=== PATIENT | female | born 1955 | race African-American/Black ===

== ENCOUNTER 2022-02-02 09:39 | Inpatient (IN) | payer MEDICAID ==
[~2022-02-02] VITALS: Ht 167.6 cm; Wt 76.2 kg
[2022-02-02 11:49] LABS: BASOPHILS % 0.3 % (0.0-2.0); HEMATOCRIT. 28.4 % (36.0-48.0); HEMOGLOBIN. 9.3 g/dL (12.0-16.0); LYMPHOCYTES % 22.4 % (20.0-50.0); MEAN CORPUSCULAR HEMOGLOBIN 28.6 pg (28.0-32.0); MEAN CORPUSCULAR VOLUME 87.3 fL (81.0-99.0); MEAN PLATELET VOLUME 8.1 fl (7.4-10.4); MONOCYTES % 4.4 % (2.0-8.0); NEUTROPHILS % 70.9 % (40.0-76.0); PLATELET 229 x1000/uL (130-400); RED BLOOD CELL COUNT 3.26 mill/uL (4.2-5.4); RED CELL DISTRIBUTION WIDTH 13.6 % (11.6-14.6)
[2022-02-02] MEDS ORDERED: MORPHINE SULFATE 4 MG/ML CPJ (NOT FOR IM USE) IV ONE (12:00)
[2022-02-02 12:06] LABS: CHLORIDE 107 mEq/L (98-107)
[2022-02-02] MEDS ORDERED: DIPHENHYDRAMINE 50MG/ML VIAL IV ONE (12:30)
[2022-02-02] MEDS ORDERED: INSULIN REGULAR (HUMULIN R) 300UNITS/3ML VIAL IV ONE (12:30)
[2022-02-02] MEDS ORDERED: SODIUM BICARBONATE 8.4% 1 MEQ/ML 50ML SYR IV ONE (12:30)
[2022-02-02] MEDS ORDERED: CALCIUM CHLORIDE 1GM/10ML SYR IV ONE (12:30)
[2022-02-02] MEDS ORDERED: ALBUTEROL (0.083%) 2.5MG/3ML NEB HHN ONE (12:30)
[2022-02-02] MEDS ORDERED: DEXTROSE 50% WATER 50ML SYRINGE IV ONE (12:30)
[2022-02-02] MEDS ORDERED: SODIUM CHLORIDE 0.9% 500 ML IV ONE (12:45)
[2022-02-02 14:00] VITALS: BP 104/51
[2022-02-02 14:30] VITALS: BP 104/51
[2022-02-02] MEDS ORDERED: GABA-529 PO (14:40)
[2022-02-02] MEDS ORDERED: INSU100I13 SQ (14:40)
[2022-02-02] MEDS ORDERED: INSU100I19 SQ (14:40)
[2022-02-02] MEDS ORDERED: DULO30CA52 PO (14:40)
[2022-02-02] MEDS ORDERED: LISI20TA31 PO (14:40)
[2022-02-02] MEDS ORDERED: HYDROCODONE/ACETAMINOPHEN 5/325MG TABLET PO PRN (15:00)
[2022-02-02] MEDS ORDERED: CLONIDINE 0.1MG TABLET PO PRN (15:00)
[2022-02-02] MEDS ORDERED: DEXTROSE 50% WATER 50ML SYRINGE IV PRN ×2 (15:00)
[2022-02-02] MEDS ORDERED: ENOXAPARIN 40MG/0.4ML SYR SUBCUT SCH (15:00)
[2022-02-02] MEDS ORDERED: ACETAMINOPHEN 325MG TABLET PO PRN (15:00)
[2022-02-02] MEDS ORDERED: MAGNESIUM/ALUMINUM HYDROXIDE/SIMETHICONE 30ML UDC PO PRN (15:00)
[2022-02-02] MEDS ORDERED: ONDANSETRON HCL 4MG/2ML INJ IV PRN (15:00)
[2022-02-02] MEDS ORDERED: ALBUTEROL (0.083%) 2.5MG/3ML NEB HHN NR (15:30)
[2022-02-02] MEDS ORDERED: NALOXONE HCL 0.4MG/ML VIAL IV PRN (15:30)
[2022-02-02] MEDS ORDERED: SODIUM POLYSTYRENE SULFONATE 15 G/60 ML BOT PO NR (15:30)
[2022-02-02] MEDS: ENOXAPARIN 30MG/0.3ML SYR SUBCUT SCH (15:55)
[2022-02-02] MEDS: BLOOD SUGAR DIAGNOSTIC STRIP TEST SCH ×2 (15:55→21:00)
[2022-02-02 16:00] VITALS: BP 102/39
[2022-02-02] MEDS: INSULIN LISPRO 100 UNITS/ML SUBCUT SCH ×2 (17:12→22:36)
[2022-02-02] MEDS: GABAPENTIN 100MG CAPSULE PO SCH (17:12)
[2022-02-02 17:55] VITALS: BP 104/51
[2022-02-02 20:00] VITALS: BP 113/48
[2022-02-02 20:07] LABS: T4 FREE 0.96 ng/dL (0.76-1.46)
[2022-02-02] MEDS: INSULIN GLARGINE 100 UNITS/ML SUBCUT SCH (22:35)
[2022-02-02 23:05] LABS: HEPATITIS B SURFACE ANTIGEN NEGATIVE
[2022-02-03] VITALS: BP 104/36
[2022-02-03 04:00] VITALS: BP 99/41
[2022-02-03] MEDS: BLOOD SUGAR DIAGNOSTIC STRIP TEST SCH ×4 (05:42→20:44)
[2022-02-03] MEDS: OMEPRAZOLE 20MG CAPSULE EXTENDED RELEASE PO SCH (05:46)
[2022-02-03] MEDS: INSULIN LISPRO 100 UNITS/ML SUBCUT SCH ×4 (06:31→20:43)
[2022-02-03 06:40] LABS: BASOPHILS % 0.5 % (0.0-2.0); EOSINOPHILS % 2.4 % (0.0-5.0); HEMOGLOBIN. 8.8 g/dL (12.0-16.0); LYMPHOCYTES % 25.3 % (20.0-50.0); MEAN CORPUSCULAR HEMOGLOBIN 27.9 pg (28.0-32.0); MEAN PLATELET VOLUME 8.7 fl (7.4-10.4); MONOCYTES % 3.9 % (2.0-8.0); NEUTROPHILS % 67.9 % (40.0-76.0); PLATELET 239 x1000/uL (130-400); RED BLOOD CELL COUNT 3.14 mill/uL (4.2-5.4); RED CELL DISTRIBUTION WIDTH 13.7 % (11.6-14.6)
[2022-02-03 08:00] VITALS: BP 109/51
[2022-02-03] MEDS: GABAPENTIN 100MG CAPSULE PO SCH ×3 (08:55→17:00)
[2022-02-03] MEDS: DULOXETINE HCL 30MG DR CAPSULE PO SCH (08:55)
[2022-02-03 11:42] LABS: CHLORIDE 107 mEq/L (98-107)
[2022-02-03 12:00] VITALS: BP 155/63
[2022-02-03 12:53] LABS: HDL CHOLESTEROL 34 mg/dL (40-59); LDL CHOLESTEROL 168 mg/dL (5-100); PHOSPHORUS 4.4 mg/dL (2.5-4.9); T4 FREE 1.08 ng/dL (0.76-1.46)
[2022-02-03 16:00] VITALS: BP 155/75
[2022-02-03 16:18] LABS: CLARITY URINE TURBID (CLEAR); COLOR URINE YELLOW (YELLOW); KETONES URINE TRACE (NEGATIVE); LEUKOCYTE ESTERASE URINE 3+ (NEGATIVE); NITRITE URINE NEGATIVE (NEGATIVE); OCCULT BLOOD URINE 2+ (NEGATIVE); PROTEIN URINE 4+ (NEGATIVE); UROBILINOGEN URINE 0.2 E.U./dL (0.2-1.0)
[2022-02-03 16:42] LABS: *AMPHETAMINES SCREEN URINE NEGATIVE (NEGATIVE); *BARBITURATES SCREEN URINE NEGATIVE (NEGATIVE); *BENZODIAZEPINES SCREEN URINE NEGATIVE (NEGATIVE); *COCAINE SCREEN URINE NEGATIVE (NEGATIVE); CANNABINOID URINE SCREEN NEGATIVE (NEGATIVE); METHADONE URINE SCREEN NEGATIVE (NEGATIVE); OPIATES URINE SCREEN PRESUMTIVE POSITIVE (NEGATIVE); PHENCYCLIDINE URINE SCREEN NEGATIVE (NEGATIVE)
[2022-02-03] MEDS: ENOXAPARIN 30MG/0.3ML SYR SUBCUT SCH (17:00)
[2022-02-03 20:00] VITALS: BP 147/65
[2022-02-03] MEDS: INSULIN GLARGINE 100 UNITS/ML SUBCUT SCH (20:43)
[2022-02-04] VITALS: BP 149/65
[2022-02-04 04:00] VITALS: BP 151/62
[2022-02-04] MEDS: INSULIN LISPRO 100 UNITS/ML SUBCUT SCH ×2 (05:38→12:10)
[2022-02-04] MEDS: BLOOD SUGAR DIAGNOSTIC STRIP TEST SCH ×2 (05:38→11:54)
[2022-02-04] MEDS: OMEPRAZOLE 20MG CAPSULE EXTENDED RELEASE PO SCH (05:38)
[2022-02-04 06:26] LABS: BASOPHILS % 0.5 % (0.0-2.0); EOSINOPHILS % 4.4 % (0.0-5.0); HEMATOCRIT. 26.5 % (36.0-48.0); HEMOGLOBIN. 8.9 g/dL (12.0-16.0); LYMPHOCYTES % 30.4 % (20.0-50.0); MEAN CORPUSCULAR HEMOGLOBIN 28.8 pg (28.0-32.0); MEAN CORPUSCULAR VOLUME 85.5 fL (81.0-99.0); MEAN PLATELET VOLUME 8.2 fl (7.4-10.4); MONOCYTES % 4.9 % (2.0-8.0); NEUTROPHILS % 59.8 % (40.0-76.0); PLATELET 218 x1000/uL (130-400); RED CELL DISTRIBUTION WIDTH 13.4 % (11.6-14.6)
[2022-02-04 06:38] LABS: CHLORIDE 108 mEq/L (98-107)
[2022-02-04 06:53] LABS: PHOSPHORUS 4.5 mg/dL (2.5-4.9)
[2022-02-04 08:00] VITALS: BP_SYST 131; BP_SYST 150; BP_DIAS 61; BP_DIAS 67
[2022-02-04] MEDS ORDERED: SODIUM CHLORIDE 0.9% 1,000 ML IV SCH (08:30)
[2022-02-04] MEDS: DULOXETINE HCL 30MG DR CAPSULE PO SCH (08:58)
[2022-02-04] MEDS: GABAPENTIN 100MG CAPSULE PO SCH ×2 (08:58→14:10)
[2022-02-04] MEDS ORDERED: CEFTRIAXONE 1,000 MG in DEXTROSE 5% WATER 50 ML IV SCH (10:00)
[2022-02-04 12:00] VITALS: BP 150/61
[2022-02-04 12:46] LABS: CREATINE KINASE 168 IU/L (26-192)
[2022-02-04] MEDS ORDERED: LEVO250T74 MT (14:58)
[2022-02-04 16:00] VITALS: BP 152/65
[2022-02-04 16:42] VITALS: BP 154/65
[2022-02-04] MEDS ORDERED: EPOETIN ALFA-EPBX 4,000 UNIT/ML VIAL SUBCUT SCH (21:00)
== END 2022-02-04 17:30 | disposition home or self-care (01) | DRG 203 ==
LOC: ER 09:39 → 7EST 12:45 → EDBEDREQ 12:47 → EDBEDREQTM 12:47 → EDBEDREQ 12:48
PROVIDERS: ADMIT Family Medicine Adult Medicine; ATTEND Family Medicine Adult Medicine
DX: M94.0 Chondrocostal junction syndrome [Tietze] (principal); N17.0 Acute kidney failure with tubular necrosis; E44.1 Mild protein-calorie malnutrition; D63.1 Anemia in chronic kidney disease; I25.2 Old myocardial infarction; E11.22 Type 2 diabetes mellitus with diabetic chronic kidney disease; E87.5 Hyperkalemia; E78.00 Pure hypercholesterolemia, unspecified; I12.9 Hypertensive chronic kidney disease with stage 1 through stage 4 chronic kidney disease, or unspecified chronic kidney disease; N18.4 Chronic kidney disease, stage 4 (severe); N39.0 Urinary tract infection, site not specified; Z79.899 Other long term (current) drug therapy; Z82.49 Family history of ischemic heart disease and other diseases of the circulatory system; Z68.27 Body mass index [BMI] 27.0-27.9, adult; E11.65 Type 2 diabetes mellitus with hyperglycemia
CPT/HCPCS: 36415; 71045; 76770; 80048; 80053; 80061; 80076; 80305; 81003; 82550; 82570; 82962; 83036; 83735; 83880; 84100; 84132; 84156; 84439; 84443; 84481; 84484; 85025; 86038; 86160; 86705; 86709; 86803; 87077; 87186; 87340; 93005; 93306; 93970; 99285; J0696; J0885; J1200; J1650; J1815; J2270; J3490; J7030; J7060

== ENCOUNTER 2022-03-15 15:29 | Inpatient (IN) | payer MEDICAID ==
[~2022-03-15] VITALS: Ht 152.4 cm; Wt 80.8 kg
[~2022-03-15 15:29] MED LIST: DULO30CA52 PO; GABA-529 PO; INSU100I13 SQ; INSU100I19 SQ; LEVO250T74 MT; LISI20TA31 PO
[2022-03-15] MEDS ORDERED: SODIUM CHLORIDE 0.9% 1000ML BAG (SEPSIS BOLUS) IV ONE (17:00)
[2022-03-15] MEDS ORDERED: ACETAMINOPHEN 325MG TABLET PO ONE (17:00)
[2022-03-15 18:30] LABS: BASOPHILS % 0.2 % (0.0-2.0); EOSINOPHILS % 1.6 % (0.0-5.0); HEMATOCRIT. 27.9 % (36.0-48.0); HEMOGLOBIN. 9.2 g/dL (12.0-16.0); LYMPHOCYTES % 22.2 % (20.0-50.0); MEAN CORPUSCULAR HEMOGLOBIN 28.3 pg (28.0-32.0); MEAN CORPUSCULAR VOLUME 85.7 fL (81.0-99.0); MEAN PLATELET VOLUME 8.4 fl (7.4-10.4); MONOCYTES % 8.1 % (2.0-8.0); NEUTROPHILS % 67.9 % (40.0-76.0); PLATELET 174 x1000/uL (130-400); RED BLOOD CELL COUNT 3.26 mill/uL (4.2-5.4)
[2022-03-15 18:37] LABS: PARTIAL THROMBOPLASTIN TIME 30.2 sec (23.4-31.0); PROTHROMBIN TIME 10.9 sec (9.6-11.0)
[2022-03-15 18:41] LABS: CHLORIDE 109 mEq/L (98-107)
[2022-03-15] MEDS ORDERED: AZITHROMYCIN 500MG/250ML 250 ML IV ONE (19:15)
[2022-03-15] MEDS ORDERED: OSELTAMIVIR 75MG CAPSULE PO ONE (19:15)
[2022-03-15] MEDS ORDERED: CEFTRIAXONE 1 G PREMIX 50 ML IV ONE (19:15)
[2022-03-15 21:01] LABS: CLARITY URINE CLOUDY (CLEAR); COLOR URINE YELLOW (YELLOW); KETONES URINE NEGATIVE (NEGATIVE); LEUKOCYTE ESTERASE URINE 1+ (NEGATIVE); NITRITE URINE NEGATIVE (NEGATIVE); OCCULT BLOOD URINE 2+ (NEGATIVE); PH URINE 5.5 (4.5-8.0); PROTEIN URINE 4+ (NEGATIVE); SPECIFIC GRAVITY URINE 1.017 (1.005-1.030); UROBILINOGEN URINE 0.2 E.U./dL (0.2-1.0)
[2022-03-15] MEDS ORDERED: ACETAMINOPHEN 500MG TABLET PO NR (22:30)
[2022-03-15] MEDS ORDERED: AZITHROMYCIN 500MG/250ML 250 ML IV NR (22:30)
[2022-03-16] MEDS ORDERED: LEVOFLOXACIN 750MG PREMIX 150ML IV NR (15:30)
[2022-03-16] MEDS ORDERED: IPRATROPIUM/ALBUTEROL 0.5-3(2.5)MG/3ML NEB HHN PRN (15:30)
[2022-03-16] MEDS ORDERED: HYDROCODONE/ACETAMINOPHEN 5/325MG TABLET PO PRN (15:30)
[2022-03-16] MEDS ORDERED: ONDANSETRON HCL 4MG/2ML INJ IV PRN (15:30)
[2022-03-16] MEDS ORDERED: LORAZEPAM 0.5MG TABLET PO PRN (15:30)
[2022-03-16] MEDS ORDERED: ACETAMINOPHEN 325MG TABLET PO PRN (15:30)
[2022-03-16] MEDS ORDERED: NALOXONE HCL 0.4MG/ML VIAL IV PRN (15:45)
[2022-03-16 16:18] LABS: TOTAL IRON BINDING CAPACITY 147 ug/dL (250-450)
[2022-03-16 16:39] LABS: FOLIC ACID (FOLATE) SERUM 19.9 ng/mL (>5.38)
[2022-03-16] MEDS: CLONIDINE 0.1MG TABLET PO PRN (16:49)
[2022-03-16] MEDS: DULOXETINE HCL 30MG DR CAPSULE PO SCH (16:50)
[2022-03-16] MEDS: ACETAMINOPHEN 325MG TABLET PO PRN (16:50)
[2022-03-16] MEDS: GABAPENTIN 100MG CAPSULE PO SCH (17:00)
[2022-03-16] MEDS: INSULIN GLARGINE 100 UNITS/ML SUBCUT SCH (22:00)
[2022-03-16 23:14] VITALS: BP 168/70
[2022-03-17] VITALS: BP 169/75
[2022-03-17] MEDS: CLONIDINE 0.1MG TABLET PO PRN ×2 (00:21→13:39)
[2022-03-17 04:00] VITALS: BP_SYST 139; BP_SYST 145; BP_DIAS 70; BP_DIAS 89
[2022-03-17 07:40] LABS: BASOPHILS % 0.3 % (0.0-2.0); EOSINOPHILS % 3.7 % (0.0-5.0); HEMATOCRIT. 24.5 % (36.0-48.0); HEMOGLOBIN. 8.2 g/dL (12.0-16.0); LYMPHOCYTES % 26.7 % (20.0-50.0); MEAN CORPUSCULAR HEMOGLOBIN 28.5 pg (28.0-32.0); MEAN CORPUSCULAR VOLUME 85.2 fL (81.0-99.0); MEAN PLATELET VOLUME 8.3 fl (7.4-10.4); MONOCYTES % 6.7 % (2.0-8.0); NEUTROPHILS % 62.6 % (40.0-76.0); PLATELET 167 x1000/uL (130-400); RED BLOOD CELL COUNT 2.88 mill/uL (4.2-5.4); RED CELL DISTRIBUTION WIDTH 14.3 % (11.6-14.6)
[2022-03-17 08:00] VITALS: BP 152/74
[2022-03-17] MEDS: DULOXETINE HCL 30MG DR CAPSULE PO SCH (09:17)
[2022-03-17] MEDS: GABAPENTIN 100MG CAPSULE PO SCH ×3 (09:17→16:29)
[2022-03-17] MEDS: INSULIN GLARGINE 100 UNITS/ML SUBCUT SCH ×2 (09:19→21:21)
[2022-03-17 12:00] VITALS: BP 168/75
[2022-03-17] MEDS: ENOXAPARIN 30MG/0.3ML SYR SUBCUT SCH (14:58)
[2022-03-17 15:07] LABS: BG BASE EXCESS -5.6 mmol/L (-2.0-2.0); BG CARBOXYHEMOGLOBIN 0.2 % (0.5-1.5); BG DEOXYHEMOGLOBIN 4.7 % (0.0-5.0); BG FRACTION INSPIRED OXYGEN 21; BG HCO3 ACT 19.3 mmol/L (22.0-26.0); BG METHEMOGLOBIN 0.1 % (0.0-1.5); BG OXYGEN SATURATION 95.3 % (92.0-98.5); BG PCO2 35.2 mmHg (35.0-45.0); BG PH 7.356 (7.350-7.450); BG PO2 81.7 mmHg (75.0-100.0); BG SAMPLE SITE LEFT RADIAL; BG TOTAL HEMOGLOBIN 9.2 g/dL (12.0-18.0); BG VENT MODE ROOM AIR
[2022-03-17 16:00] VITALS: BP 169/66
[2022-03-17] MEDS ORDERED: ALBUTEROL 6.7GM HFA INHALER ORI PRN (17:00)
[2022-03-17 20:00] VITALS: BP 176/70
[2022-03-17] MEDS: AMLODIPINE 5MG TABLET PO SCH (21:21)
[2022-03-18] VITALS: BP 117/53
[2022-03-18] MEDS: ACETAMINOPHEN 325MG TABLET PO PRN (00:18)
[2022-03-18 04:00] VITALS: BP 134/61
[2022-03-18 07:35] LABS: BASOPHILS % 0.3 % (0.0-2.0); EOSINOPHILS % 0.1 % (0.0-5.0); HEMATOCRIT. 25.2 % (36.0-48.0); HEMOGLOBIN. 8.4 g/dL (12.0-16.0); LYMPHOCYTES % 22.5 % (20.0-50.0); MEAN CORPUSCULAR HEMOGLOBIN 28.5 pg (28.0-32.0); MEAN CORPUSCULAR VOLUME 85.6 fL (81.0-99.0); MEAN PLATELET VOLUME 8.3 fl (7.4-10.4); MONOCYTES % 5.4 % (2.0-8.0); NEUTROPHILS % 71.7 % (40.0-76.0); PLATELET 164 x1000/uL (130-400); RED BLOOD CELL COUNT 2.95 mill/uL (4.2-5.4); RED CELL DISTRIBUTION WIDTH 13.7 % (11.6-14.6)
[2022-03-18 08:00] VITALS: BP 138/57
[2022-03-18] MEDS: GABAPENTIN 100MG CAPSULE PO SCH ×3 (09:14→16:31)
[2022-03-18] MEDS: DULOXETINE HCL 30MG DR CAPSULE PO SCH (09:14)
[2022-03-18] MEDS: AMLODIPINE 5MG TABLET PO SCH ×2 (09:14→21:43)
[2022-03-18] MEDS: INSULIN GLARGINE 100 UNITS/ML SUBCUT SCH ×2 (09:15→21:43)
[2022-03-18] MEDS: LEVOFLOXACIN 500MG PREMIX 100 ML IV SCH (11:34)
[2022-03-18 12:00] VITALS: BP 148/60
[2022-03-18] MEDS ORDERED: DEXTROSE 50% WATER 50ML SYRINGE IV PRN (12:30)
[2022-03-18] MEDS: INSULIN LISPRO 100 UNITS/ML SUBCUT SCH ×3 (12:30→21:42)
[2022-03-18] MEDS: BLOOD SUGAR DIAGNOSTIC STRIP TEST SCH ×3 (12:40→21:00)
[2022-03-18] MEDS: ENOXAPARIN 30MG/0.3ML SYR SUBCUT SCH (13:53)
[2022-03-18] MEDS: NITROGLYCERIN OINT 1GM/INCH UDPKT TD SCH ×2 (13:53→21:43)
[2022-03-18 16:00] VITALS: BP 104/51
[2022-03-18] MEDS: THEOPHYLLINE ANHYDROUS 80 MG/15 ML 120ML PO SCH ×2 (16:31→21:43)
[2022-03-18 20:00] VITALS: BP 120/60
[2022-03-18 21:28] LABS: CREATINE KINASE 152 IU/L (26-192)
[2022-03-18] MEDS: ALBUTEROL 6.7GM HFA INHALER ORI SCH (22:03)
[2022-03-19] MEDS: THEOPHYLLINE ANHYDROUS 80 MG/15 ML 120ML PO SCH ×4 (00:05→17:28)
[2022-03-19] MEDS: ALBUTEROL 6.7GM HFA INHALER ORI SCH (03:50)
[2022-03-19 04:00] VITALS: BP 163/76
[2022-03-19] MEDS: NITROGLYCERIN OINT 1GM/INCH UDPKT TD SCH ×3 (05:14→21:13)
[2022-03-19] MEDS: BLOOD SUGAR DIAGNOSTIC STRIP TEST SCH ×4 (06:40→21:12)
[2022-03-19] MEDS: INSULIN LISPRO 100 UNITS/ML SUBCUT SCH ×4 (07:10→21:00)
[2022-03-19 08:00] VITALS: BP 153/71
[2022-03-19 08:56] LABS: BASOPHILS % 0.2 % (0.0-2.0); EOSINOPHILS % 0.6 % (0.0-5.0); HEMATOCRIT. 24.1 % (36.0-48.0); HEMOGLOBIN. 8.1 g/dL (12.0-16.0); LYMPHOCYTES % 21.2 % (20.0-50.0); MEAN CORPUSCULAR HEMOGLOBIN 28.5 pg (28.0-32.0); MEAN CORPUSCULAR VOLUME 85.2 fL (81.0-99.0); MEAN PLATELET VOLUME 8.2 fl (7.4-10.4); MONOCYTES % 7.2 % (2.0-8.0); NEUTROPHILS % 70.8 % (40.0-76.0); PLATELET 164 x1000/uL (130-400); RED BLOOD CELL COUNT 2.83 mill/uL (4.2-5.4); RED CELL DISTRIBUTION WIDTH 13.7 % (11.6-14.6)
[2022-03-19] MEDS: GABAPENTIN 100MG CAPSULE PO SCH ×3 (09:08→17:28)
[2022-03-19] MEDS: SODIUM BICARBONATE 650 MG TABLET PO SCH ×3 (09:08→17:28)
[2022-03-19] MEDS: AMLODIPINE 5MG TABLET PO SCH ×2 (09:08→21:12)
[2022-03-19] MEDS: DULOXETINE HCL 30MG DR CAPSULE PO SCH (09:08)
[2022-03-19] MEDS: INSULIN GLARGINE 100 UNITS/ML SUBCUT SCH ×2 (09:09→21:14)
[2022-03-19 12:00] VITALS: BP 142/71
[2022-03-19] MEDS: ENOXAPARIN 40MG/0.4ML SYR SUBCUT SCH (14:10)
[2022-03-19 16:00] VITALS: BP 159/67
[2022-03-19 20:00] VITALS: BP 157/76
[2022-03-20] VITALS: BP 161/77
[2022-03-20] MEDS: THEOPHYLLINE ANHYDROUS 80 MG/15 ML 120ML PO SCH ×3 (00:32→22:40)
[2022-03-20 04:00] VITALS: BP 154/65
[2022-03-20] MEDS: NITROGLYCERIN OINT 1GM/INCH UDPKT TD SCH ×3 (05:22→22:41)
[2022-03-20] MEDS: BLOOD SUGAR DIAGNOSTIC STRIP TEST SCH ×4 (06:03→21:00)
[2022-03-20] MEDS: INSULIN LISPRO 100 UNITS/ML SUBCUT SCH ×4 (06:03→21:00)
[2022-03-20 07:49] LABS: BASOPHILS % 0.3 % (0.0-2.0); EOSINOPHILS % 0.9 % (0.0-5.0); HEMATOCRIT. 25.2 % (36.0-48.0); HEMOGLOBIN. 8.3 g/dL (12.0-16.0); LYMPHOCYTES % 22.7 % (20.0-50.0); MEAN CORPUSCULAR HEMOGLOBIN 28.1 pg (28.0-32.0); MEAN CORPUSCULAR VOLUME 85.1 fL (81.0-99.0); MEAN PLATELET VOLUME 8.3 fl (7.4-10.4); MONOCYTES % 7.2 % (2.0-8.0); NEUTROPHILS % 68.9 % (40.0-76.0); PLATELET 193 x1000/uL (130-400); RED BLOOD CELL COUNT 2.96 mill/uL (4.2-5.4); RED CELL DISTRIBUTION WIDTH 13.3 % (11.6-14.6)
[2022-03-20 08:00] VITALS: BP 149/60
[2022-03-20] MEDS: GABAPENTIN 100MG CAPSULE PO SCH ×3 (08:47→16:22)
[2022-03-20] MEDS: DULOXETINE HCL 30MG DR CAPSULE PO SCH (08:47)
[2022-03-20] MEDS: SODIUM BICARBONATE 650 MG TABLET PO SCH ×3 (08:47→16:21)
[2022-03-20] MEDS: AMLODIPINE 5MG TABLET PO SCH ×2 (08:48→22:41)
[2022-03-20] MEDS: LEVOFLOXACIN 500MG PREMIX 100 ML IV SCH (10:00)
[2022-03-20] MEDS: INSULIN GLARGINE 100 UNITS/ML SUBCUT SCH ×2 (10:01→22:42)
[2022-03-20 12:00] VITALS: BP 144/75
[2022-03-20 13:07] LABS: ANTI-NUCLEAR ANTIBODIES DIRECT Negative (Negative)
[2022-03-20] MEDS: ENOXAPARIN 40MG/0.4ML SYR SUBCUT SCH (13:15)
[2022-03-20 16:00] VITALS: BP 133/70
[2022-03-20 20:00] VITALS: BP 131/65
[2022-03-20] MEDS: ALBUTEROL 6.7GM HFA INHALER ORI SCH (22:36)
[2022-03-21] VITALS (7 sets, daily range): BP systolic 121–148; BP diastolic 58–73
[2022-03-21] MEDS: ALBUTEROL 6.7GM HFA INHALER ORI SCH ×4 (04:54→21:34)
[2022-03-21] MEDS: NITROGLYCERIN OINT 1GM/INCH UDPKT TD SCH ×3 (05:56→21:38)
[2022-03-21] MEDS: BLOOD SUGAR DIAGNOSTIC STRIP TEST SCH ×4 (06:00→21:28)
[2022-03-21] MEDS: INSULIN LISPRO 100 UNITS/ML SUBCUT SCH ×4 (06:00→21:00)
[2022-03-21 07:43] LABS: BASOPHILS % 0.3 % (0.0-2.0); EOSINOPHILS % 1.3 % (0.0-5.0); HEMOGLOBIN. 8.1 g/dL (12.0-16.0); LYMPHOCYTES % 34.4 % (20.0-50.0); MEAN CORPUSCULAR HEMOGLOBIN 27.8 pg (28.0-32.0); MEAN CORPUSCULAR VOLUME 85.4 fL (81.0-99.0); MEAN PLATELET VOLUME 8.4 fl (7.4-10.4); MONOCYTES % 6.9 % (2.0-8.0); NEUTROPHILS % 57.1 % (40.0-76.0); PLATELET 218 x1000/uL (130-400); RED BLOOD CELL COUNT 2.92 mill/uL (4.2-5.4); RED CELL DISTRIBUTION WIDTH 13.6 % (11.6-14.6)
[2022-03-21] MEDS: AMLODIPINE 5MG TABLET PO SCH ×2 (09:04→21:32)
[2022-03-21] MEDS: DULOXETINE HCL 30MG DR CAPSULE PO SCH (09:04)
[2022-03-21] MEDS: THEOPHYLLINE ANHYDROUS 80 MG/15 ML 120ML PO SCH (09:04)
[2022-03-21] MEDS: SODIUM BICARBONATE 650 MG TABLET PO SCH ×3 (09:04→16:09)
[2022-03-21] MEDS: GABAPENTIN 100MG CAPSULE PO SCH ×3 (09:04→16:09)
[2022-03-21] MEDS: INSULIN GLARGINE 100 UNITS/ML SUBCUT SCH ×2 (09:06→21:33)
[2022-03-21] MEDS ORDERED: AMLO5TAB88 PO (11:58)
[2022-03-21] MEDS ORDERED: ATOR40TA70 MT (11:58)
[2022-03-21] MEDS: ENOXAPARIN 40MG/0.4ML SYR SUBCUT SCH (13:15)
[2022-03-22] VITALS: BP 121/53
[2022-03-22 04:00] VITALS: BP 140/66
[2022-03-22] MEDS: ALBUTEROL 6.7GM HFA INHALER ORI SCH ×4 (04:19→21:03)
[2022-03-22] MEDS: NITROGLYCERIN OINT 1GM/INCH UDPKT TD SCH ×3 (05:40→21:03)
[2022-03-22] MEDS: BLOOD SUGAR DIAGNOSTIC STRIP TEST SCH ×4 (05:49→20:55)
[2022-03-22] MEDS: INSULIN LISPRO 100 UNITS/ML SUBCUT SCH ×4 (05:50→20:55)
[2022-03-22 08:00] VITALS: BP 96/51
[2022-03-22] MEDS: AMLODIPINE 5MG TABLET PO SCH ×2 (09:00→21:03)
[2022-03-22] MEDS: SODIUM BICARBONATE 650 MG TABLET PO SCH ×3 (09:16→16:46)
[2022-03-22] MEDS: GABAPENTIN 100MG CAPSULE PO SCH ×3 (09:16→16:46)
[2022-03-22] MEDS: DULOXETINE HCL 30MG DR CAPSULE PO SCH (09:16)
[2022-03-22] MEDS: INSULIN GLARGINE 100 UNITS/ML SUBCUT SCH ×2 (09:58→21:05)
[2022-03-22 12:00] VITALS: BP 134/64
[2022-03-22] MEDS: ENOXAPARIN 40MG/0.4ML SYR SUBCUT SCH (13:29)
[2022-03-22 16:00] VITALS: BP 130/58
[2022-03-22 20:00] VITALS: BP 128/65
[2022-03-23] VITALS: BP 145/63
[2022-03-23] MEDS: DOCUSATE SODIUM 100MG CAPSULE PO PRN (03:15)
[2022-03-23] MEDS: ALBUTEROL 6.7GM HFA INHALER ORI SCH ×4 (03:15→21:09)
[2022-03-23 04:00] VITALS: BP 165/80
[2022-03-23] MEDS: NITROGLYCERIN OINT 1GM/INCH UDPKT TD SCH ×2 (05:43→13:30)
[2022-03-23] MEDS: INSULIN LISPRO 100 UNITS/ML SUBCUT SCH ×4 (05:47→21:09)
[2022-03-23] MEDS: BLOOD SUGAR DIAGNOSTIC STRIP TEST SCH ×4 (05:47→20:53)
[2022-03-23 08:00] VITALS: BP 119/58
[2022-03-23] MEDS ORDERED: NA PHOS,M-B/NA PHOS,DI-BA ENEMA 118ML PR NR (08:15)
[2022-03-23] MEDS ORDERED: LACTULOSE 20G/30ML UDC PO NR (08:15)
[2022-03-23] MEDS: DULOXETINE HCL 30MG DR CAPSULE PO SCH (09:01)
[2022-03-23] MEDS: GABAPENTIN 100MG CAPSULE PO SCH ×3 (09:01→17:10)
[2022-03-23] MEDS: AMLODIPINE 5MG TABLET PO SCH (09:01)
[2022-03-23] MEDS: INSULIN GLARGINE 100 UNITS/ML SUBCUT SCH ×2 (09:08→21:10)
[2022-03-23 12:00] VITALS: BP 134/69
[2022-03-23] MEDS: ENOXAPARIN 40MG/0.4ML SYR SUBCUT SCH (13:30)
[2022-03-23 16:00] VITALS: BP 90/38
[2022-03-23 20:00] VITALS: BP 116/46
[2022-03-24] VITALS: BP 96/44
[2022-03-24 04:00] VITALS: BP 116/46
[2022-03-24] MEDS: ALBUTEROL 6.7GM HFA INHALER ORI SCH ×2 (05:11→22:00)
[2022-03-24] MEDS: INSULIN LISPRO 100 UNITS/ML SUBCUT SCH ×4 (06:25→21:00)
[2022-03-24] MEDS: BLOOD SUGAR DIAGNOSTIC STRIP TEST SCH ×4 (06:25→21:00)
[2022-03-24 08:00] VITALS: BP 91/40
[2022-03-24] MEDS: INSULIN GLARGINE 100 UNITS/ML SUBCUT SCH ×2 (10:00→22:00)
[2022-03-24] MEDS: DULOXETINE HCL 30MG DR CAPSULE PO SCH (10:15)
[2022-03-24] MEDS: GABAPENTIN 100MG CAPSULE PO SCH ×3 (10:15→17:28)
[2022-03-24 11:41] LABS: BASOPHILS % 0.4 % (0.0-2.0); EOSINOPHILS % 1.9 % (0.0-5.0); HEMATOCRIT. 24.3 % (36.0-48.0); LYMPHOCYTES % 31.4 % (20.0-50.0); MEAN CORPUSCULAR HEMOGLOBIN 28.4 pg (28.0-32.0); MEAN CORPUSCULAR VOLUME 86.5 fL (81.0-99.0); NEUTROPHILS % 60.3 % (40.0-76.0); PLATELET 291 x1000/uL (130-400); RED BLOOD CELL COUNT 2.81 mill/uL (4.2-5.4); RED CELL DISTRIBUTION WIDTH 13.9 % (11.6-14.6)
[2022-03-24 12:00] VITALS: BP 90/60
[2022-03-24] MEDS: ENOXAPARIN 40MG/0.4ML SYR SUBCUT SCH (14:24)
[2022-03-24 16:00] VITALS: BP 96/38
[2022-03-24 20:00] VITALS: BP 98/57
[2022-03-25] VITALS: BP_SYST 113; BP_SYST 122; BP_DIAS 55; BP_DIAS 56
[2022-03-25 04:00] VITALS: BP 122/55
[2022-03-25] MEDS: ALBUTEROL 6.7GM HFA INHALER ORI SCH (04:00)
[2022-03-25] MEDS: BLOOD SUGAR DIAGNOSTIC STRIP TEST SCH ×4 (06:40→20:34)
[2022-03-25] MEDS: INSULIN LISPRO 100 UNITS/ML SUBCUT SCH ×4 (07:10→20:34)
[2022-03-25 07:49] LABS: BASOPHILS % 0.4 % (0.0-2.0); EOSINOPHILS % 3.1 % (0.0-5.0); HEMATOCRIT. 24.4 % (36.0-48.0); HEMOGLOBIN. 7.9 g/dL (12.0-16.0); LYMPHOCYTES % 30.5 % (20.0-50.0); MEAN CORPUSCULAR HEMOGLOBIN 28.2 pg (28.0-32.0); MEAN CORPUSCULAR VOLUME 86.6 fL (81.0-99.0); MEAN PLATELET VOLUME 7.5 fl (7.4-10.4); MONOCYTES % 5.7 % (2.0-8.0); NEUTROPHILS % 60.3 % (40.0-76.0); PLATELET 294 x1000/uL (130-400); RED BLOOD CELL COUNT 2.82 mill/uL (4.2-5.4); RED CELL DISTRIBUTION WIDTH 13.9 % (11.6-14.6)
[2022-03-25 08:00] VITALS: BP 110/56
[2022-03-25] MEDS: GABAPENTIN 100MG CAPSULE PO SCH ×4 (09:30→18:04)
[2022-03-25] MEDS: DULOXETINE HCL 30MG DR CAPSULE PO SCH (09:30)
[2022-03-25] MEDS: INSULIN GLARGINE 100 UNITS/ML SUBCUT SCH ×2 (10:00→20:43)
[2022-03-25 12:00] VITALS: BP 156/68
[2022-03-25 16:00] VITALS: BP 152/71
[2022-03-25] MEDS: ENOXAPARIN 40MG/0.4ML SYR SUBCUT SCH (18:04)
[2022-03-25 20:00] VITALS: BP 163/75
[2022-03-25] MEDS: DOCUSATE SODIUM 100MG CAPSULE PO PRN (20:43)
[2022-03-26] VITALS: BP 159/73
[2022-03-26 04:00] VITALS: BP 141/75
[2022-03-26] MEDS: BLOOD SUGAR DIAGNOSTIC STRIP TEST SCH ×3 (06:11→17:37)
[2022-03-26] MEDS: INSULIN LISPRO 100 UNITS/ML SUBCUT SCH ×3 (06:12→17:10)
[2022-03-26 08:00] VITALS: BP 148/68
[2022-03-26] MEDS: DULOXETINE HCL 30MG DR CAPSULE PO SCH (10:45)
[2022-03-26] MEDS: GABAPENTIN 100MG CAPSULE PO SCH ×3 (10:45→18:17)
[2022-03-26] MEDS: INSULIN GLARGINE 100 UNITS/ML SUBCUT SCH (10:48)
[2022-03-26 12:00] VITALS: BP 135/71
[2022-03-26] MEDS: ENOXAPARIN 40MG/0.4ML SYR SUBCUT SCH (13:45)
[2022-03-26 16:00] VITALS: BP 160/79
[2022-03-26 17:38] VITALS: BP 150/75
== END 2022-03-27 01:00 | disposition home or self-care (01) | DRG 720 ==
LOC: ER 15:29 → EDBEDREQ 22:28 → EDBEDREQTM 22:28 → MICUSO 03-16 22:22 → 7EST 03-16 23:53
PROVIDERS: ADMIT Internal Medicine; ATTEND Internal Medicine
DX: A41.89 Other specified sepsis (principal); J96.00 Acute respiratory failure, unspecified whether with hypoxia or hypercapnia; J12.82 Pneumonia due to coronavirus disease 2019; E44.0 Moderate protein-calorie malnutrition; U07.1 COVID-19; N17.9 Acute kidney failure, unspecified; D63.1 Anemia in chronic kidney disease; E87.20 Acidosis, unspecified; D68.8 Other specified coagulation defects; E88.09 Other disorders of plasma-protein metabolism, not elsewhere classified; I12.9 Hypertensive chronic kidney disease with stage 1 through stage 4 chronic kidney disease, or unspecified chronic kidney disease; I16.0 Hypertensive urgency; E78.00 Pure hypercholesterolemia, unspecified; E11.22 Type 2 diabetes mellitus with diabetic chronic kidney disease; I25.10 Atherosclerotic heart disease of native coronary artery without angina pectoris; J20.8 Acute bronchitis due to other specified organisms; N18.9 Chronic kidney disease, unspecified; N39.0 Urinary tract infection, site not specified; B96.20 Unspecified Escherichia coli [E. coli] as the cause of diseases classified elsewhere; K59.00 Constipation, unspecified; E78.5 Hyperlipidemia, unspecified; E87.5 Hyperkalemia; E83.42 Hypomagnesemia; Z79.4 Long term (current) use of insulin; Z78.9 Other specified health status; Z68.34 Body mass index [BMI] 34.0-34.9, adult; I25.2 Old myocardial infarction
CPT/HCPCS: 36415; 36600; 71045; 76770; 78580; 80048; 80053; 80061; 81003; 82375; 82550; 82570; 82607; 82728; 82746; 82805; 82962; 83036; 83540; 83550; 83605; 83735; 83880; 84145; 84156; 84443; 84484; 85025; 85379; 86038; 86160; 87077; 87186; 87426; 87804; 93005; 93306; 93970; 96365; 96367; 99285; C9803; J0456; J0696; J1650; J1815; J1956; J2405; J7030